=== PATIENT | female | born 1985 | race African-American/Black ===

== ENCOUNTER 2022-05-05 03:11 | Emergency (ER) | payer SELFPAY ==
[2022-05-05] MEDS ORDERED: Sodium Chloride 0.9% 1,000 ML IV ONE (03:28)
[2022-05-05] MEDS ORDERED: Ondansetron 4 MG/2 ML SDV IVPUSH ONE (03:28)
[2022-05-05 04:02] LABS: ESTIMATED GFR > 60 (>60)
[2022-05-05] MEDS ORDERED: Metoprolol Tartrate 50 MG Tab PO STA (05:07)
[2022-05-05] MEDS ORDERED: Potassium Chloride 20 MEQ Tab.ER PO STA (05:22)
== END 2022-05-05 06:05 | disposition home or self-care (01) ==
LOC: FB.ED 03:11
DX: F15.10 Other stimulant abuse, uncomplicated (principal); E87.6 Hypokalemia
CPT/HCPCS: 36415; 80053; 80307; 81001; 85025; 96361; 96374; 99284-25; A9270-GY; J2405; J7030